=== PATIENT | male | born 1995 | race Two or more races ===

== ENCOUNTER 2022-08-09 10:33 | Outpatient (REF) | payer OTHER, SELFPAY ==
[2022-08-09 12:37] LABS: Cholesterol 96 mg/dL; Glucose Fasting 79 mg/dL (60-99); HDL Cholesterol 41 mg/dL; LDL Cholesterol Calculated 47 mg/dl; Triglycerides 42 mg/dL
== END 2022-08-09 10:34 | disposition home or self-care (01) ==
LOC: HO.LAB 10:33
PROVIDERS: Visit Provider Family Medicine
DX: Z13.6 Encounter for screening for cardiovascular disorders (principal); Z82.49 Family history of ischemic heart disease and other diseases of the circulatory system
CPT/HCPCS: 36415; 80061; 82947

== ENCOUNTER 2025-03-25 15:31 | Outpatient (AMB) | payer OTHER, SELFPAY ==
--- NOTE | 2025-03-25 15:16 | MHC.PC.OV ---
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 Lives at home with mom and brother. 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 No alcohol. No history of cigarettes. No illicit drugs or marijuana. No formal exercise. Healthy diet overall. Concerns: Eczema R wrist pain/cyst Health Maintenance: Has not been for eye exams Overdue dentist Colonoscopies age 47 Uses sun protection Vaccines UTD Review past medical, surgical, family, social history ROS: General: No fevers, malaise, unintentional weight loss HEENT: No blurred vision, diplopia. No sore throat, nasal congestion, rhinorrhea, sinus pain, ear pain. No hearing loss Neck - no adenopathy Cardiovascular: No chest pain, palpitations, or leg edema Respiratory: No shortness of breath, wheezing, cough GI: No dysphagia, odynophagia, globus sensation. No abdominal pain, nausea, vomiting, diarrhea, constipation, melena, hematochezia : No dysuria, hematuria, increased urinary frequency, decreased urinary output. No testicular swelling or pain. No penile discharge MSK: No myalgia, back pain, arthralgias Neuro: No headaches, weakness, paresthesias Psych: no depression/anxiery. No AH/VH. No SI/HI Skin: No rashes or lesions EXAM: Constitutional - Awake and Alert, No apparent distress Eyes - PERRLA, EOMI. Anicteric Ears - external ears normal, canals clear, TMs intact and pearly bonner with good cone of light Nose- septum midline, nares clear, no sinus tenderness Mouth/throat- mucosa moist, tongue and uvula midline, no erythema/edema or tonsillar adenopathy. Neck-trachea midline, thyroid symmetric without palpable nodules, no adenopathy Cardiovascular - S1S2, RRR, No edema Respiratory - Normal lung expansion, Normal respiratory effort, No respiratory distress, CTA bilaterally Gastrointestinal - NT / ND; +BS; No rebound or guarding - No CVA tenderness Extremities - no calf tenderness bilaterally, no swelling Musculoskeletal - Normal inspection, normal ROM Skin - Warm/Dry, no concerning lesions Neurological - Alert & oriented x3, CN II-XII in tact, 5/5 strength BUE and BLE, 2+ patellar reflexes, sensation intact Psychological - Appropriate affect [facility] Medical History Allergies Atopic dermatitis ADHD Surgical History No pertinent past surgical history Family History Father Esophageal cancer Maternal Grandfather Cancer Social History Housing: House Patient Tobacco Use Status: Never used Tobacco e-Cigarette/Vaping Use: Never Used service: No Current occupation: [employer]-non ferrous material handler Questionnaire PHQ-9 Over the last 2 weeks, how often have you been bothered by any of the following problems? 1. Little interest or pleasure in doing things: not at all 2. Feeling down, depressed, or hopeless: not at all 3. Trouble falling or staying asleep, or sleeping too much: not at all 4. Feeling tired or having little energy: not at all 5. Poor appetite or overeating: not at all 6. Feeling bad about yourself - or that you are a failure or have let yourself or your family down: not at all 7. Trouble concentrating on things, such as reading the newspaper or watching television: not at all 8. Moving or speaking so slowly that other people could have noticed. Or the opposite - being so fidgety or restless that you have been moving around a lot more than usual: not at all 9. Thoughts that you would be better off or of hurting yourself in some way: not at all Total score: 0 Depression Screening Interpretation: Negative Depression Screening Done: Yes 83016 - PHQ-9 Billing: Yes Source: Developed by Drs. Christoph Lagos, Yodit Woods, Darian Montgomery and colleagues, with an educational genna from [employer]. Thrive Questionnaire I am a: Patient What is your living situation today?: I have a steady place to live Within the past 12 months, did the food you bought not last and you didn't have the money to get more?: Never true Within the past 12 months, did you worry whether your food would run out before you got money to buy more?: Never true Do you have trouble paying for medicines?: No Do you have trouble getting transportation to medical appointments?: No Do you have trouble paying your heating and electricity bill?: No Do you have trouble taking care of your child, family member or friend?: No Do you have trouble with day-to-day activities such as bathing, preparing meals, shopping, managing finances, etc.?: No Are you currently unemployed and looking for a job?: No Are you interested in more education?: No Please select the resources that you would like help with: None THRIVE Score: 0 AUDIT C Alcohol Use Questionnaire (AUDIT-C) 1. How often do you have a drink containing alcohol?: Never 3. How often do you have six or more drinks on one occasion?: Never Total Score: 0 MELVI-7 AMB Questionnaire MELVI-7 Feeling nervous, anxious, or on edge: 0 = Not at all Not being able to stop or control worryin = Not at all Worrying too much about different things: 0 = Not at all Trouble relaxin = Not at all Being so restless that it is hard to sit still: 0 = Not at all Becoming easily annoyed or irritable: 0 = Not at all Feeling afraid as if something awful might happen: 0 = Not at all Total MELVI-7 score (0-4 normal; 5-9 mild; 10-14 moderate; 15-21 severe): 0 Source: Developed by Yodit Sifuentes Kurt Kroenke and colleagues, with an educational genna from [employer]. MELVI-7 Assessment Billing MELVI-7 Assessment Tool: MELVI-7 Assessment 82791 Physical exam (Primary Care) Vital Signs: Last Vital Signs Temp 98.2 F 03/25/25 15:36 Pulse 94 03/25/25 15:36 Resp 16 03/25/25 15:36 BP 110/74 03/25/25 15:36 Pulse Ox 97 03/25/25 15:36 Oxygen Delivery Method Room Air 03/25/25 15:36 BMI result Body Mass Index 27.5 Tobacco/Smoking Status: Tobacco use Status Tobacco use date assessed 03/25/25 03/25/25 15:17 Patient Tobacco Use Status Never used Tobacco 03/25/25 15:38 e-Cigarette/Vaping Use Never Used 03/25/25 15:38 Depression Screening Interpretation: Negative Coding Level of Care Code New Pt Prev Care 18-39yr(41464 Diagnoses Routine medical exam Z00.00 Mass of wrist R22.30 Atopic dermatitis L20.9 Additional Codes MELVI-7 Assessment Billing - MELVI-7 Assessment Tool: MELVI-7 Assessment 00484 ([id number]) PHQ-9 - 61700 - PHQ-9 Billing: Yes ([id number]) Assessment & Plan Assessment & Plan (1) Routine medical exam: Code(s): Z00.00 - Encounter for general adult medical examination without abnormal findings Category: Medical Plan: 29 year old male here for physical exam and to establish care (2) Mass of wrist: Code(s): R22.30 - Localized swelling, mass and lump, unspecified upper limb Category: Medical Plan: Suspect ganglion cyst. XR and referral to ortho ordered (3) Atopic dermatitis: Code(s): L20.9 - Atopic dermatitis, unspecified Category: Medical Plan: Emollient moisturizer and cortisone Plan Routine screening labs as ordered below Colonoscopies are 47. Referred to GI d/t fh gastric cancer father Continue following for annual skin exams and use sun protection Annual eye exams Wear seat belt in car Recommend regular exercise and healthy diet Follow up in 1 year for annual exam Orders: Orders Basic Metabolic Panel 03/27/25 Z00.00 - Encounter for general adult medical examination without abnormal findings Complete Blood Count Auto Diff 03/27/25 Z00.00 - Encounter for general adult medical examination without abnormal findings Lipid Panel 03/27/25 Z00.00 - Encounter for general adult medical examination without abnormal findings XR wrist RT 2V 03/25/25 R22.30 - Localized swelling, mass and lump, unspecified upper limb Liver Panel 03/27/25 Z00.00 - Encounter for general adult medical examination without abnormal findings Referrals Orthopedics Referral M67.40 - Ganglion, unspecified site Gastroenterology Referral Z80.0 - Family history of malignant neoplasm of digestive organs
[2025-03-25 15:36] VITALS: BP 110/74; PULSE 94; RESP 16; TEMP 36.8; O2SAT 97; BMI 27.5
--- OUTSIDE RECORDS SUMMARY | 2025-03-25 18:39 | XMS_ITS | Encounter Summary ---
Author Organization [facility] Address [address] [place] [phone] Phone Care Team Providers Care Rug Clipper Name Role Phone Unavailable Primary Care Provider Unavailabl e Encounter Details Date Type Department Care Team (Late st Contact Info) Description 06/01/2010 Documentation [facility] [place] [address] Family Medicine, Physician [address] [place] [id number] Social History Tobacco Use Types Packs/Day Years Used Date Smoking Tobacco: Never Assessed Sex and Gender Information Value Date Recorded Sex Assigned at Not on file Legal Sex Male 5:14 PM EDT Gender Identity Not on file Sexual Orientation Not on file documented as of this encounter Plan of Treatment Not on file documented as of this encounter Visit Diagnoses Not on filedocumented in this encounter
--- OUTSIDE RECORDS SUMMARY | 2025-03-25 18:39 | XMS_ITS | Encounter Summary ---
Author Organization [facility] Address [address] [place] [phone] Phone Care Team Providers Care Product Representative Name Role Phone Unavailable Primary Care Provider Unavailabl e Encounter Details Date Type Department Care Team (Late st Contact Info) Description 05/21/2015 Documentation [facility] [place] [facility] [place] [facility] [place] [address] Family Medicine, Physician [facility] [place] [id number] Social History Tobacco Use Types Packs/Day Years [...]
--- OUTSIDE RECORDS SUMMARY | 2025-03-25 18:39 | XMS_ITS | Encounter Summary ---
Author Organization [facility] Address [address] [place] [phone] Phone Care Team Providers Care Dough Mixing Machine Operator Name Role Phone Unavailable Primary Care Provider Unavailabl e Encounter Details Date Type Department Care Team (Late st Contact Info) Description 10/04/2015 Documentation [facility] [place] [facility] [place] [address] Family Medicine, Physician [address] [place] [address] [phone] Social History Tobacco Use Types Packs/Day Years [...]
--- OUTSIDE RECORDS SUMMARY | 2025-03-25 18:39 | XMS_ITS | Clinical Summary ---
Author Organization [facility] Address [address] [place] [phone] Phone Care Team Providers Care Tire Fixer Name Role Phone Unavailable Primary Care Provider Unavailabl e Immunizations Immunization Administration Dates Next Due DTaP 5 10/23/2001, 0,07/08/1998, 998,1997 H1N1 06/24/2009 Hep B, ped/adol 07/08/1998,04/14/1998,1997 Hib (PRP-T) 08/24/1999,199 9,04/14/1998, 998 IPV 06/24/2009, 2,04/14/1998, 998 MMR 10/23/2001,08/24/1999 Meningococcal Conj (Menactra) MCV4P 09/02/2015,0 02/03/2010 Tdap 02/03/2010 Varicella 02/03/2010,12/14/1999 Family History Relation Name Status Comments Brother Alive Brother: Develo pmental delay Father Alive Father: Hyperte nsion Maternal Grandfather Materna l grandfather: Cancer, pancreas Maternal Grandmother Materna l aunt: Cancer, breast Mother Alive Mother: Obesity Other Family history of Diabetes mellitus, Family history of ADD/ADHD, Family history of Seizure disorder, Family history of Obesity Social History Tobacco Use Types Packs/Day Years Used Date Smoking Tobacco: Never Comments:Never smoker Sex and Gender Information Value Date Recorded Sex Assigned at Not on file Legal Sex Male 5:14 PM EDT Gender Identity Not on file Sexual Orientation Not on file Last Filed Vital Signs Vital Sign Reading Time Taken Comments Blood Pressure 119/80 09/14/2016 12:00 AM EDT Pulse 77 09/14/2016 12:00 AM EDT Temperature - - Respiratory Rate - - Oxygen Saturation - - Inhaled Oxygen Concentration - - Weight 69.7 kg (153 lb 9.6 oz) 09/14/2016 12:00 AM EDT Height 173.4 cm (5' 8.25 ) 09/14/2016 12:00 AM E DT Body Mass Index 23.19 09/14/2016 12:00 AM EDT Plan of Treatment Health Maintenance Due Date Last Done Comments DTaP,Tdap,and Td Vaccines (7 - Td or Tdap) 02/04/2020 02/03/2010, 10/23/2001, 08/24/1999, Additional history exists HPV Vaccines (1 - 3-dose SCDM series) 2024 Influenza Vaccines (#1) 2024 COVID-19 Vaccine (2024- season) 2025 Hepatitis B Vaccines Completed 07/08/1998, 04/14/1998, 1997 HIB Vaccines Completed 08/24/1999, 06/15, 04/14/1998, Additional history exists MMR Vaccines Completed 10/23/2001, 08/24/1999 IPV Vaccines Completed 06/24/2009, 10/12, 04/14/1998, Additional history exists Varicella Vaccines Completed 02/03/2010, 12/14/1999 Meningococcal Vaccine Completed 09/02/2015, 010 Hepatitis A Vaccines Aged Out No long er eligible based on patient's age to complete this topic Men B Vaccine Aged Out No longer elig ible based on patient's age to complete this topic Pneumococcal Vaccine Aged Out No long er eligible based on patient's age to complete this topic
--- OUTSIDE RECORDS SUMMARY | 2025-03-25 18:39 | XMS_ITS | Encounter Summary ---
Author Organization [facility] Address [address] [place] [phone] Phone Care Team Providers Care Bulk Cooler Installer Name Role Phone Unavailable Primary Care Provider Unavailabl e Encounter Details Date Type Department Care Team (Late Contact Info) Description 12/28/2016 Conversion Encounter [facility] - [address] [address] Social History Tobacco Use Types Packs/Day Years [...]
--- OUTSIDE RECORDS SUMMARY | 2025-03-25 18:39 | XMS_ITS | Encounter Summary ---
Author Organization [facility] Address [address] [place] [phone] Phone Care Team Providers Care Big Data Platform Architect Name Role Phone Unavailable Primary Care Provider Unavailabl e Encounter Details Date Type Department Care Team (Late st Contact Info) Description 09/15/2014 Documentation [facility] [place] [facility] [place] [address] Family Medicine, Physician [address] [place], [place] [address] Social History Tobacco Use Types Packs/Day Years [...]
--- OUTSIDE RECORDS SUMMARY | 2025-03-25 18:39 | XMS_ITS | Encounter Summary ---
Author Organization [facility] Address [address] [place] [phone] Phone Care Team Providers Care Hydraulic Mechanic Name Role Phone Unavailable Primary Care Provider Unavailabl e Encounter Details Date Type Department Care Team (Late st Contact Info) Description 02/26/2012 Documentation [facility] [place] Family Medicine [facility] [place] [address] Family Medicine, Physician [address] [place] [address] Social History Tobacco Use Types Packs/Day Years [...]
== END 2025-03-25 16:14 | disposition home or self-care (01) ==
LOC: HO.HMCHD 15:31
PROVIDERS: Visit Provider Physician Assistant
DX: Z00.00 Encounter for general adult medical examination without abnormal findings (principal); R22.30 Localized swelling, mass and lump, unspecified upper limb; L20.9 Atopic dermatitis, unspecified

== ENCOUNTER → 2025-03-25 15:31 | Outpatient (BNVA) | payer OTHER, SELFPAY | PROVIDERS: Visit Provider Physician Assistant | DX: Z00.00 Encounter for general adult medical examination without abnormal findings (principal); Z13.31 Encounter for screening for depression; Z13.30 Encounter for screening examination for mental health and behavioral disorders, unspecified; R22.30 Localized swelling, mass and lump, unspecified upper limb | CPT/HCPCS: 96127 ==

== ENCOUNTER 2025-03-27 11:16 | Outpatient (REF) | payer OTHER, SELFPAY ==
[2025-03-27 11:33] LABS: MANUAL DIFF FLAG NO
[2025-03-27 11:36] LABS: Hematocrit 45.0 % (42.0-52.0); Hemoglobin 15.5 g/dl (14.0-18.0); Imm Gran Abs Auto 0.05 X10*3/uL (0.00-0.03); Imm Gran Pct Auto 0.6 % (0.0-0.4); Lymphocytes Absolute Auto 2.5 X10*3/uL (1.2-4.9); Mean Corpuscular HGB Conc 34.4 g/dl (31.0-36.0); Mean Corpuscular Hemoglobin 29.9 pg (27.0-33.0); Mean Corpuscular Volume 86.7 fL (80.0-98.0); NRBC Abs Auto 0.000 X10*3/uL (0.0-0.012); NRBC Pct Auto 0.0 /100WBC (0.0-0.2); Platelet Count 240 X10*3/uL (160-400); Red Blood Count 5.19 X10*6/uL (4.60-5.80); White Blood Count 8.4 X10*3/uL (4.8-10.8)
[2025-03-27 12:28] LABS: Alanine Aminotransferase 60 U/L (0-40); Albumin Level 5.1 g/dL (3.5-5.0); Alkaline Phosphatase 101 U/L (39-117); Anion Gap 11 (12-20); Aspartate Amino Transferase 31 U/L (5-37); Blood Urea Nitrogen 20 mg/dL (9-16); Calcium 10.0 mg/dL (8.4-10.2); Carbon Dioxide 26 mmol/L (22-29); Chloride 109 mmol/L (96-108); Cholesterol 101 mg/dL (<200); Estimated Glomerular Filt Rate > 60; HDL Cholesterol 41 mg/dL (>40); Potassium 4.1 mmol/L (3.3-5.1); Sodium 142 mmol/L (135-145); Total Protein 8.0 g/dL (6.5-8.0); Triglycerides 50 mg/dL (<150)
== END 2025-03-27 11:17 | disposition home or self-care (01) ==
LOC: HO.LAB 11:16
PROVIDERS: Visit Provider Physician Assistant
DX: Z00.00 Encounter for general adult medical examination without abnormal findings (principal); Z13.6 Encounter for screening for cardiovascular disorders
CPT/HCPCS: 36415; 80048; 80061; 80076; 85025